=== PATIENT | female | born 1975 | race Caucasian/White ===

== ENCOUNTER 2023-08-07 07:24 | Emergency (ER) | payer SELFPAY ==
--- NOTE | 2023-08-07 07:49 | ER ---
Nurse's Notes [facility] Name: Jodi Jones Age: 47 yrs Sex: Female : 1975 Arrival Date: 08/07/2023 Time: 07:24 Bed 5 Private MD: Diagnosis: Panic Attack Presentation: 08/07 07:34 Chief complaint: EMS states: patient called due to panic attack, she has a hx of ptsd ko1 and something triggered her anxiety this morning. Coronavirus screen: At this time, the client does not indicate any symptoms associated with coronavirus-19. Ebola Screen: No symptoms or risks identified at this time. Initial Sepsis Screen: Does the patient meet any 2 criteria? No. Patient's initial sepsis screen is negative. Does the patient have a suspected source of infection? No. Patient's initial sepsis screen is negative. Risk Assessment: Do you want to hurt yourself or someone else? Patient reports no desire to harm self or others. Onset of symptoms was August 07, 2023. Care prior to arrival: Medication(s) given: Ativan 2mg IM. 07:34 Method Of Arrival: EMS: [facility] ko1 07:34 Acuity: PETER 4 ko1 Triage Assessment: 07:36 General: Appears distressed, Behavior is anxious, flat. Pain: Denies pain. ko1 Historical: - Allergies: 07:36 Codeine; ko1 - Immunization history:: Adult Immunizations unknown. - Social history:: Smoking status: Patient denies any tobacco usage or history of. - Family history:: not pertinent. Screenin:59 [facility] ED Fall Risk Assessment (Adult) History of falling in the last 3 months, ko1 including since admission No falls in past 3 months (0 pts) Confusion or Disorientation No (0 pts) Intoxicated or Sedated No (0 pts) Impaired Gait No (0 pts) Mobility Assist Device Used No (0 pt) Altered Elimination No (0 pt) Score/Fall Risk Level 0 - 2 = Low Risk Oriented to surroundings, Maintained a safe environment, Educated pt \T\ family on fall prevention, incl call for assistance when getting out of bed, Assessed \T\ reinforced patient's understanding of fall precautions, Provided non-skid footwear, Hourly rounding (assess needs \T\ fall precautionary measures) done, Used ambulatory aids as needed (educated on \T\ assisted with), Used gait belt as appropriate. Abuse screen: Denies threats or abuse. Denies injuries from another. Nutritional screening: No deficits noted. Tuberculosis screening: No symptoms or risk factors identified. Assessment: 07:59 Neuro: No deficits noted. Cardiovascular: No deficits noted. Respiratory: No deficits ko1 noted. GI: No deficits noted. : No deficits noted. EENT: No deficits noted. Derm: No deficits noted. Musculoskeletal: No deficits noted. Vital Signs: 07:34 BP 148 / 84; Pulse 88; Resp 16; Temp 98; Pulse Ox 99% on R/A; ko1 07:59 BP 115 / 90; Pulse 85; Resp 18; Pulse Ox 99% ; ko1 ED Course: 07:34 Patient arrived in ED. ko1 07:34 Neil Alas MD is Attending Physician. rt 07:34 Melanie Alan RN is Primary Nurse. ko1 07:36 Triage completed. ko1 07:36 Arm band placed on right wrist. Patient placed in an exam room, on a stretcher, on ko1 pulse oximetry, Patient notified of wait time. 07:59 Patient has correct armband on for positive identification. Bed in low position. Call ko1 light in reach. Side rails up X 1. Provided Education on: na. Client placed on continuous cardiac and pulse oximetry monitoring. NIBP monitoring applied. scenery builder on. Door closed. Noise minimized. 07:59 No provider procedures requiring assistance completed. Patient did not have IV access ko1 during this emergency room visit. Administered Medications: No medications were administered Medication: 07:59 VIS not applicable for this client. ko1 Outcome: 07:49 Discharge ordered by . rt 08:01 Discharged to home ambulatory, ko1 08:01 Condition: improved 08:01 Discharge instructions given to patient, Instructed on discharge instructions, follow up and referral plans. Demonstrated understanding of instructions, follow-up care, 08:01 Patient left the ED. ko1 Signatures: Melanie Alan, RN RN ko1 Neil Alas MD MD rt
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
[2023-08-07 08:06] VITALS: TEMP 98; O2SAT 99
[2023-08-07 08:07] VITALS: BP 115/90
== END 2023-08-07 08:01 | disposition home or self-care (01) ==
LOC: ER 07:24
DX: F41.0 Panic disorder [episodic paroxysmal anxiety] (principal); Z88.5 Allergy status to narcotic agent
CPT/HCPCS: 99284